=== PATIENT | male | born 1975 | race Caucasian/White ===

== ENCOUNTER 2020-05-19 07:17 | Emergency (ER) | payer BC ==
[~2020-05-19] VITALS: Ht 167.6 cm; Wt 88.5 kg
[2020-05-19 07:17] VITALS: BP_SYST 119
--- NOTE | 2020-05-19 07:17 | NUR ---
BROUGHT BACK TO BED #4 AND TRIAGED. REPORT GIVEN TO IRINA
--- NOTE | 2020-05-19 07:30 | NUR ---
Pt walked in to ER with c/o headache x6 days. Reports nausea and insomnia due to pain. History of seizures. V/S stable, pt is afebrile. Currently resting in bed, will continue to monitor.
--- NOTE | 2020-05-19 07:45 | NUR ---
ER Dr. Mcelroy at bedside examining patient.
--- NOTE | 2020-05-19 08:00 | NUR ---
Lab at bedside to blood draw.
[2020-05-19] MEDS ORDERED: PROCHLORPERAZINE EDISYLATE 10 MG/2 ML VIAL IVP ONE (08:15)
[2020-05-19] MEDS ORDERED: NACL 0.9% 1,000 ML IV ONE (08:15)
[2020-05-19] MEDS ORDERED: KETOROLAC TROMETHAMINE 30 MG VIAL IVP ONE (08:15)
[2020-05-19 08:43] LABS: BASOPHILS % (AUTO) 0.7 % (0.0-2.0); HEMOGLOBIN 14.7 g/dL (14.0-18.0); LYMPHOCYTES # (AUTO) 1.7 K/uL (1.0-5.5); LYMPHOCYTES % (AUTO) 42.5 % (20.5-51.5); MEAN CORPUSCULAR HEMOGLOBIN 29 pg (27-31); MEAN CORPUSCULAR HGB CONC 33 % (32-36); MEAN CORPUSCULAR VOLUME 90 fL (79.0-98.0); MONOCYTES # (AUTO) 0.5 K/uL (0.0-1.0); NEUTROPHILS # (AUTO) 1.8 K/uL (1.8-7.7); NEUTROPHILS % (AUTO) 44.8 % (40.0-70.0); PLATELET COUNT (AUTO) 168 K/uL (130-430); RED CELL DISTRIBUTION WIDTH 13.8 % (9.0-15.0)
--- NOTE | 2020-05-19 08:45 | NUR ---
Pt to radiology via wheelchair for head CT.
[2020-05-19 08:58] LABS: CALCIUM 8.2 mg/dL (8.4-11.0); CREATININE 1.02 mg/dL (0.55-1.30); POTASSIUM 4.2 mmol/L (3.5-5.1)
--- NOTE | 2020-05-19 09:00 | NUR ---
# 22 gauge angiocath placed to LFA. Use of asceptic technique. Opsite placed over site. Blood return noted. Flushed with 10 cc of normal saline. No evidence of infiltration noted. Patient tolerated well.
[2020-05-19 09:02] LABS: PROTHROMBIN TIME 10.2 SECS (9.5-12.5)
[2020-05-19 09:09] LABS: ALBUMIN 3.8 g/dL (3.4-4.8); TOTAL BILIRUBIN 0.3 mg/dL (0.0-1.0)
--- NOTE | 2020-05-19 09:30 | NUR ---
1L NS bolus infusing at ordered.
[2020-05-19 10:35] VITALS: BP_SYST 119
--- NOTE | 2020-05-19 10:35 | NUR ---
Patient given written and verbal discharge instructions and verbalizes understanding. ER MD discussed with patient the results and treatment provided. Patient in stable condition. ID arm band removed. IV catheter removed intact and dressing applied, no active bleeding. Rx of Motrin given. Patient educated on pain management and to follow up with PMD. Pain Scale 3. Opportunity for questions provided and answered. Medication side effect fact sheet provided.
== END 2020-05-19 10:35 | disposition home or self-care (01) ==
LOC: SED 07:17
DX: R51 Headache (principal); K75.9 Inflammatory liver disease, unspecified
CPT/HCPCS: 36415; 70450; 80053; 85025; 85610; 85730; 96374; 96375; 99284; J0780; J1885; J7030

== ENCOUNTER 2021-11-26 10:38 | Emergency (ER) | payer BC, SELFPAY ==
[~2021-11-26] VITALS: Ht 167.6 cm; Wt 94.3 kg
--- NOTE | 2021-11-26 11:10 | NUR ---
Patient to ER bed Tent
--- NOTE | 2021-11-26 11:15 | NUR ---
Pt ambulatory, A&Ox4, pt presents to ER with cough/congestion, O2 99%, skin pink and warm, cap refill <3, VSS.
--- NOTE | 2021-11-26 11:30 | NUR ---
Dr Mata evaluating patient at bedside
[2021-11-26 11:36] VITALS: BP_SYST 133
--- NOTE | 2021-11-26 11:43 | NUR ---
Patient swabbed for covid (zarina). Sample brought to lab.
[2021-11-26] MEDS ORDERED: BENZ1LOZ58 PO (12:23)
[2021-11-26] MEDS ORDERED: IBUP-1969 PO (12:23)
[2021-11-26] MEDS ORDERED: LIDOCAINE VISCOUS 2%, 15 ML UDC MM ONE (12:30)
[2021-11-26] MEDS ORDERED: KETOROLAC TROMETHAMINE 30 MG VIAL IM ONE (12:30)
[2021-11-26 14:19] VITALS: BP_SYST 135
--- NOTE | 2021-11-26 14:19 | NUR ---
Patient given written and verbal discharge instructions and verbalizes understanding. ER MD discussed with patient the results and treatment provided. Patient in stable condition. ID arm band removed. No Rx given. Patient educated on pain management and to follow up with PMD. Pain Scale 2/10 . Opportunity for questions provided and answered. Medication side effect fact sheet provided.
== END 2021-11-26 14:19 | disposition home or self-care (01) ==
LOC: SED 10:38
DX: U07.1 COVID-19 (principal); Z79.899 Other long term (current) drug therapy
CPT/HCPCS: 87426; 96372; 99283; J1885; J2001; 36415

== ENCOUNTER 2022-01-26 12:54 | Emergency (ER) | payer BC, SELFPAY ==
[~2022-01-26] VITALS: Ht 165.1 cm; Wt 95.3 kg
[~2022-01-26 12:54] MED LIST: BENZ1LOZ58 PO; IBUP-1969 PO
[2022-01-26 13:15] VITALS: BP_SYST 150
[2022-01-26] MEDS ORDERED: TOPIRAMATE 25 MG TABLET(TOPAMAX) PO ONE (14:30)
[2022-01-26 14:33] LABS: BASOPHILS % (AUTO) 0.5 % (0.0-2.0); HEMATOCRIT 41.7 % (36-54); LYMPHOCYTES # (AUTO) 1.8 K/uL (1.0-5.5); LYMPHOCYTES % (AUTO) 28.8 % (20.5-51.5); MEAN CORPUSCULAR HEMOGLOBIN 28 pg (27-31); MEAN CORPUSCULAR HGB CONC 34 % (32-36); MEAN CORPUSCULAR VOLUME 85 fL (79.0-98.0); MONOCYTES # (AUTO) 0.6 K/uL (0.0-1.0); MONOCYTES % (AUTO) 8.7 % (1.7-9.3); NEUTROPHILS # (AUTO) 3.9 K/uL (1.8-7.7); PLATELET COUNT (AUTO) 208 K/uL (130-430); RED BLOOD CELL COUNT(AUTO) 4.93 MIL/uL (4.2-6.2); RED CELL DISTRIBUTION WIDTH 13.3 % (9.0-15.0); WHITE BLOOD COUNT (AUTO) 6.4 K/uL (4.8-10.8)
[2022-01-26 14:50] LABS: CALCIUM 7.6 mg/dL (8.4-11.0); CREATININE 0.75 mg/dL (0.55-1.30); POTASSIUM 3.7 mmol/L (3.5-5.1)
[2022-01-26 14:55] LABS: ALBUMIN 3.6 g/dL (3.4-4.8); TOTAL BILIRUBIN 0.1 mg/dL (0.0-1.0)
[2022-01-26] MEDS ORDERED: LORazepam 2 MG/ML VIAL ONE (15:27)
[2022-01-26] MEDS ORDERED: LORazepam 1 MG TABLET PO ONE (15:30)
[2022-01-26] MEDS ORDERED: TOPI200T PO (16:25)
[2022-01-26] MEDS ORDERED: CARB200T PO (16:25)
[2022-01-26] MEDS ORDERED: TOPIRAMATE 100 MG TABLET(Topamax) PO ONE (16:30)
[2022-01-26 18:01] VITALS: BP_SYST 134
== END 2022-01-26 18:01 | disposition home or self-care (01) ==
LOC: SED 12:54
DX: G40.909 Epilepsy, unspecified, not intractable, without status epilepticus (principal); Z79.899 Other long term (current) drug therapy
CPT/HCPCS: 36415; 80053; 80156; 83605; 85025; 99284; J2060

== ENCOUNTER 2022-01-27 20:59 | Emergency (ER) | payer BC ==
[~2022-01-27] VITALS: Ht 165.1 cm; Wt 95.3 kg
[~2022-01-27 20:59] MED LIST changes: +CARB200T PO; +TOPI200T PO
[2022-01-27 21:07] VITALS: BP_SYST 142
[2022-01-27 21:41] LABS: BASOPHILS # (AUTO) 0.1 K/uL (0.0-0.2); BASOPHILS % (AUTO) 0.7 % (0.0-2.0); HEMATOCRIT 42.3 % (36-54); HEMOGLOBIN 13.9 g/dL (14.0-18.0); LYMPHOCYTES # (AUTO) 3.5 K/uL (1.0-5.5); MEAN CORPUSCULAR HEMOGLOBIN 28 pg (27-31); MEAN CORPUSCULAR HGB CONC 33 % (32-36); MEAN CORPUSCULAR VOLUME 85 fL (79.0-98.0); MONOCYTES # (AUTO) 0.6 K/uL (0.0-1.0); MONOCYTES % (AUTO) 8.8 % (1.7-9.3); NEUTROPHILS % (AUTO) 41.5 % (40.0-70.0); PLATELET COUNT (AUTO) 206 K/uL (130-430); RED BLOOD CELL COUNT(AUTO) 4.96 MIL/uL (4.2-6.2); RED CELL DISTRIBUTION WIDTH 13.2 % (9.0-15.0); WHITE BLOOD COUNT (AUTO) 7.2 K/uL (4.8-10.8)
[2022-01-27 21:52] LABS: CALCIUM 7.7 mg/dL (8.4-11.0); CREATININE 0.95 mg/dL (0.55-1.30); POTASSIUM 3.8 mmol/L (3.5-5.1)
[2022-01-27 21:59] LABS: ALBUMIN 3.6 g/dL (3.4-4.8); TOTAL BILIRUBIN 0.2 mg/dL (0.0-1.0)
[2022-01-27 23:36] VITALS: BP_SYST 96
== END 2022-01-27 23:36 | disposition home or self-care (01) ==
LOC: SED 20:59
DX: R53.1 Weakness (principal); R47.81 Slurred speech; G40.909 Epilepsy, unspecified, not intractable, without status epilepticus; Z79.899 Other long term (current) drug therapy
CPT/HCPCS: 36415; 70450-TC; 71045; 76376; 80053; 80156; 83605; 84484; 85025; 93005; 99285